=== PATIENT | male | born 1940 | race Caucasian/White ===

== ENCOUNTER 2016-10-08 13:09 | Emergency (ER) | payer OTHER, MEDICARE ==
[~2016-10-08] VITALS: Ht 182.9 cm; Wt 127.0 kg
[~2016-10-08 13:09] MED LIST: BUFFERIN LOW DO81 MG PO; CARVEDILOL12.5 M1 PO; CEPHALEXIN500 M3 PO; CRANBERRY500 M1 PO; DULCOLAX10 MG RC; DUONEB 3 MG/3 ML3 ML INH/SOL; FISH OIL 1,0001 EAC2 PO; FLEET ENEMA 131 UNIT RC; FLOMAX(MONOGRA0.4 MG PO; FOLIC ACID0.4 MG PO; FUROSEMIDE80 M1 PO; GERI-LANTA PO; HUMALOG MI100 UNIT/3 SC; JANUVIA25 MG PO; LANTUS INS100 UNITS/ SC; LEVEMIR 10100 UNITS/ SC; LEVOTHYROXINE150 MCG PO; LIPITOR20 MG PO; LOPRESSOR 12.12.5 MG PO; METOLAZONE5 M1 PO; MILK OF MA400 MG/5 M PO; NITROGLYCERIN1 EACH TOP; NOVOLOG100 U/ML SC; Nitro-Bid TOP; OXYCODONE5 MG PO; PRINIVIL 5MG5 MG PO; SIMVASTATIN80 M1 PO; TYLENOL TAB 32325 MG PO; VALIUM5 M1 PO; VICTOZA6 MG/ML SC; VITAMIN D32000 UNI1 PO; WARFARIN SODIUM5 M1 PO; [UNRECOGNIZED DRUG - OTHER] ID
[2016-10-08 13:16] VITALS: BP 117/68
[2016-10-08 14:43] LABS: PT 19.2 SEC (9.4-12.5)
[2016-10-08 14:45] LABS: ABSOLUTE BASOPHIL COUNT 0 /CUMM (0.0-0.2); ABSOLUTE EOSINOPHIL COUNT 0.5 /CUMM (0.0-0.7); ABSOLUTE GRANULOCYTE CT 7.7 /CUMM (1.4-6.5); ABSOLUTE LYMPH COUNT 1.9 /CUMM (1.2-3.4); ABSOLUTE MONOCYTE COUNT 1.1 /CUMM (0.10-0.60); BASOPHIL % 0.4 % (0.0-2.0); EOSINOPHIL % 4.3 % (0-5); GRANULOCYTE % 68.6 % (42.2-75.2); HEMATOCRIT 36.4 % (42-52); MEAN CORPUSCULAR HGB 28.8 PG (27.0-31.0); MEAN CORPUSCULAR HGB CONC 33.5 G/DL (33.0-37.0); MEAN CORPUSCULAR VOLUME 86.1 FL (80.0-94.0); MEAN PLATELET VOLUME 7.4 FL (7.4-10.4); PLATELET COUNT 193 /CUMM (130-400); RBC DISTRIBUTION WIDTH 15.5 % (11.5-14.5); RED BLOOD CELL CT 4.23 /CUMM (4.70-6.10); WHITE BLOOD CELL COUNT 11.2 /CUMM (4.8-10.8)
== END 2016-10-08 15:11 | disposition admitted as inpatient to this hospital (09) ==
LOC: ERH 13:09
PROVIDERS: Emergency Medicine
DX: R04.0 Epistaxis (principal)
CPT/HCPCS: 99281

== ENCOUNTER 2017-11-23 21:03 | Inpatient (IN) | payer OTHER, MEDICARE ==
[~2017-11-23] VITALS: Ht 182.9 cm; Wt 120.7 kg
[~2017-11-23 21:03] MED LIST changes: +BASAGLAR K100 UNIT/1 SC; +COLACE100 M1 PO; +COUMADIN2.5 M1 PO; +CRANBERRY500 M3 PO; +FISH OIL EC 1,1 EACH PO; -FLOMAX(MONOGRA0.4 MG PO; +FLOMAX0.4 M1 PO; +FOLIC ACID0.4 M1 PO; +METOPROLOL TART25 M1 PO
[2017-11-23 21:41] LABS: ABSOLUTE BASOPHIL COUNT 0 /CUMM (0.0-0.2); ABSOLUTE EOSINOPHIL COUNT 0.2 /CUMM (0.0-0.7); ABSOLUTE GRANULOCYTE CT 4.7 /CUMM (1.4-6.5); ABSOLUTE LYMPH COUNT 1.1 /CUMM (1.2-3.4); ABSOLUTE MONOCYTE COUNT 0.7 /CUMM (0.10-0.60); BASOPHIL % 0.3 % (0.0-2.0); EOSINOPHIL % 3.3 % (0-5); GRANULOCYTE % 69.9 % (42.2-75.2); HEMATOCRIT 33.8 % (42-52); MEAN CORPUSCULAR HGB 29.4 PG (27.0-31.0); MEAN CORPUSCULAR HGB CONC 33.7 G/DL (33.0-37.0); MEAN CORPUSCULAR VOLUME 87.3 FL (80.0-94.0); MEAN PLATELET VOLUME 8.2 FL (7.4-10.4); PLATELET COUNT 125 /CUMM (130-400); RED BLOOD CELL CT 3.87 /CUMM (4.70-6.10); WHITE BLOOD CELL COUNT 6.7 /CUMM (4.8-10.8)
--- NOTE | 2017-11-23 22:20 | RADIOLOGY REPORT ---
EXAMINATION: 1. Left hip. 2. Left femur. CLINICAL INFORMATION: Atraumatic leg pain COMPARISON: None TECHNIQUE: 1. Left hip. 2 views 2. Left femur. 2 views FINDINGS: 1. Left hip. There is no fracture. No dislocation. The joint space is normal. No significant arthropathy. No paraspinal soft tissue abnormality. There are vascular wall calcifications in thigh. 2. Left femur. No fracture. No focal bone lesion or abnormal periosteal reaction. IMPRESSION: 1. Left hip. Normal. 2. Left femur. Normal.
--- NOTE | 2017-11-23 22:23 | RADIOLOGY REPORT ---
EXAMINATION: XR PORTABLE CHEST CLINICAL INFORMATION: Weakness. COMPARISON: Chest x-ray 05/23/2015 TECHNIQUE: Portable frontal view of the chest was obtained. 9:35 PM FINDINGS: There is linear atelectasis/scarring at the left lung base. The lungs are otherwise clear. There is no infiltrate. There is no pulmonary vascular congestion or pleural effusion. The cardiac and mediastinal contours are unchanged. There are calcifications of aortic arch. There is multilevel degenerative spondylosis of the dorsal spine. IMPRESSION: No acute abnormality of the chest.
--- NOTE | 2017-11-23 22:23 | ED AMS/SEIZURE/WEAK/DIZZY ---
History of Present Illness General Chief Complaint: General Adult Stated Complaint: BIBA GENERALIZED WEAKNESS X 2 DAYS Source: patient, family, old records, EMS Exam Limitations: no limitations Vital Signs & Intake/Output Vital Signs & Intake/Output Vital Signs Date Time Temp Pulse Resp B/P B/P Pulse O2 O2 Flow FiO2 Mean Ox Delivery Rate 11/23 2331 65 18 114/65 97 Room Air 11/239 Room Air 11/23 2108 98.8 70 18 111/56 94 Room Air Allergies Coded Allergies: NO KNOWN ALLERGIES (11/27/14) Reconcile Medications Cholecalciferol (Vitamin D3) (Vitamin D3) 2,000 UNIT TABLET 1 TAB PO DAILY SUPPLEMENT (Reported) Cranberry Extract (Cranberry) 500 MG TABLET 1 TAB PO DAILY SUPPLEMENT ( Reported) Docusate Sodium (Colace) 100 MG CAPSULE 1 CAP PO DAILY SUPPLEMENT (Reported) Folic Acid 0.4 MG TABLET 1 TAB PO DAILY SUPPLEMENT (Reported) Furosemide 80 MG TABLET 2 TAB PO BID DIURETIC (Reported) Insulin Glargine,Hum.rec.anlog (Basaglar Kwikpen U-100) 100 UNIT/ML (3 ML) INSULN.PEN 55 UNITS SC QPM DM (Reported) Insulin NPL/Insulin Lispro (Humalog Mix 75-25 Kwikpen) 100 UNIT/ML (75-25) INSULN.PEN DIABETES (Reported) Levothyroxine Sodium 150 MCG TABLET 1 TAB PO DAILY AC THYROID (Reported) Metoprolol Tartrate 25 MG TABLET 0.5 TAB PO BID HEART/BP (Reported) [place]-3/Dha/Epa/Fish Oil (Fish Oil EC 1,000 MG Softgel) (Unknown Strength) CAPSULE.DR (Unknown Dose) PO DAILY SUPPLEMENT (Reported) Simvastatin (Simvastatin*) 80 MG TABLET 1 TAB PO DAILY CHOLESTEROL (Reported) Tamsulosin HCl (Flomax) 0.4 MG CAP.ER.24H 1 CAP PO DAILY (Reported) Warfarin Sodium 5 MG TABLET 1 TAB PO QSUN BLOOD THINNER (Reported) Warfarin Sodium (Coumadin) 2.5 MG TABLET 1 TAB PO AD BLOOD THINNER (Reported) Core Measure Meds Pre-Hospital coumadin Triage Note: BIBA FROM HOME FOR WORSENING WEAKNESS AND PAIN IN LEFT UPPER LEG PAST FEW DAYS. PT REPORTS HE NORMALLY AMBULATES INDEPENDENTLY WITH A CANE BUT MOBILITY IS WORSENING AND PAST FEW DAYS HE HAS NEEDED HELP TO MOVE AROUND. HAS BEEN SLEEPING IN A RECLINER CHAIR. STATES WHEN HE STANDS HE HAS PAIN IN LEFT UPPER LEG. PT ARRIVED AWAKE, ALERT, ORIENTED. IN NO OVERT DISTRESS. DENIES RECENT FALL INJURY OR ILLNESS. 3-4+ PITTING EDEME IN BOTH LEGS WITH COMPRESSION STOCKINGS IN PLACE Triage Nurses Notes Reviewed? yes Onset: 2 days Duration: day(s):, constant, continues in ED Timing: recent history Injury Environment: home Severity: severe Modifying Factors: Improves With: rest. Worsens With: movement. HPI: 2 weeks prior to admission patient reports falling onto his buttocks and back without known injury his ambulation was not limited. 2 days prior to admission patient complains of increasing left hip and leg pain. He also developed increasing swelling to bilateral lower extremities with inability to ambulate. He denies fever chills nausea vomiting diarrhea abdominal pain chest pain shortness breath headache dysuria bleeding. Past History Travel History Traveled to [place] past 21 day No Medical History Any Pertinent Medical History? see below for history Neurological: NONE EENT: NONE Cardiovascular: AFIB, hypertension, hyperlipidemia Respiratory: COPD, obstructive sleep apnea Gastrointestinal: GERD Hepatic: NONE Renal: hematuria, nephrectomy, RCC Musculoskeletal: NONE Psychiatric: NONE Endocrine: diabetes, hypothyroidism Blood Disorders: NONE Cancer(s): renal cancer Surgical History Surgical History: NEPHRECTOMY Psychosocial History Who do you live with Spouse What is your primary language Slovenian Tobacco Use: Never used ETOH Use: occasional use Illicit Drug Use: denies illicit drug use Family History Family History, If Any: Relation not specified for: FH: diabetes mellitus Hx Contributory? No Review of Systems Review of Systems Constitutional: Reports: see HPI, weakness. EENTM: Reports: no symptoms. Respiratory: Reports: no symptoms. Cardiovascular: Reports: see HPI, edema. GI: Reports: no symptoms. Genitourinary: Reports: no symptoms. Musculoskeletal: Reports: see HPI, joint pain. Skin: Reports: no symptoms. Neurological/Psychological: Reports: no symptoms. Hematologic/Endocrine: Reports: no symptoms. Immunologic/Allergic: Reports: no symptoms. All Other Systems: Reviewed and Negative Physical Exam Physical Exam General Appearance: well developed/nourished, alert, awake, comfortable, moderate distress, obese Head: atraumatic, normal appearance Eyes: Bilateral: normal appearance, PERRL, EOMI. Ears, Nose, Throat: normal pharynx, normal ENT inspection, hearing grossly normal Neck: normal inspection, supple, full range of motion, no midline tenderness Respiratory: normal breath sounds, chest non-tender, no respiratory distress, quiet respiration, lungs clear Cardiovascular: regular rate/rhythm, normal peripheral pulses, norml femoral pulses equa Peripheral Pulses: 4+ carotid (R), 4+ carotid (L) Gastrointestinal: normal bowel sounds, soft, non-tender, no organomegaly Back: normal inspection, normal range of motion Extremities: normal range of motion, pedal edema Neurologic/Psych: no motor/sensory deficits, awake, alert, oriented x 3, normal mood/affect, radiology services manager II-XII nml as tested Reflexes: 2+: bicep (R), bicep (L). Skin: intact Lymphatic: no anterior cervical cam Core Measures ACS in differential dx? No CVA/TIA Diagnosis No Sepsis Present: No Sepsis Focused Exam Completed? No Progress Differential Diagnosis: dehydration, electrolyte imbalance, hypoxia, pneumonia Plan of Care: Orders Procedure Date/time Status Renal Dialysis Diet 11/24 B Active Weight 11/23 2349 Active Vital Signs 11/23 2349 Active Teach/Educate 11/23 2349 Active Pain Treatment and Response 11/23 2349 Active Nutritional Intake, Monitor 11/23 2349 Active Isolation 11/23 2349 Active Intake & Output 11/23 2349 Active Patient Care Conference 11/23 2349 Active Activity/Ambulation 11/23 235 Active Patient Data 11/23 2234 Active Intake & Output 11/23 2234 Active CULTURE,BODY FLUID 11/23 2232 Active OXYGEN SETUP (GEN) 11/24 2223 Active Saline Lock 11/24 2223 Active Admit to inpatient 11/24 2223 Active Vital Signs 11/24 2223 Active Activity/Ambulation 11/24 2223 Complete Code Status 11/24 2223 Active EKG 11/23 2136 Active TROPONIN LEVEL 11/23 2124 Complete MAGNESIUM 11/23 2124 Complete COMPREHENSIVE METABOLIC PANEL 11/23 2124 Complete CBC WITHOUT DIFFERENTIAL 11/23 2124 Complete B-TYPE NATRIURETIC PEP (BNP) 11/23 2124 Complete Current Medications Sig/[place] Start time Last Medication Dose Stop Time Status Admin Furosemide 160 MG ONCE ONE 11/23 2329 UNVr (Lasix) 11/23 2330 Laboratory Tests 11/23/172126: Anion Gap 10, Estimated GFR 21 L, BUN/Creatinine Ratio 7.6, Glucose 226 H, Calcium 8.8, Magnesium 1.6, Total Bilirubin 0.5, AST 49, ALT 40, Alkaline Phosphatase 101, Troponin I 0.04, [id number] Pept 1840 H, Total Protein 5.8 L, Albumin 2.8 L, Globulin 3.0, Albumin/Globulin Ratio 0.9 L, CBC w Diff NO MAN DIFF REQ, RBC 3.87 L, MCV 87.3, MCH 29.4, MCHC 33.7, RDW 14.0, MPV 8.2, Gran % 69.9, Lymphocytes % 16.6 L, Monocytes % 9.9 H, Eosinophils % 3.3, Basophils % 0.3, Absolute Granulocytes 4.7, Absolute Lymphocytes 1.1 L, Absolute Monocytes 0.7 H, Absolute Eosinophils 0.2, Absolute Basophils 0 Microbiology 11/23 2238 BODY FLUID: Body Fluid Culture - RECD 11/23 2238 BODY FLUID: Gram Stain - RECD Diagnostic Imaging: Viewed by Me: Radiology Read. Discussed w/RAD: Radiology Read. Radiology Impression: 1. Left hip. Normal. 2. Left femur. Normal. CXR Impression: No acute abnormality of the chest Initial ED EKG: normal axis, normal intervals, normal p-waves, normal QRS complex, normal sinus rhythm, no ST T wave changes Prior EKG: unchanged Rhythm Strip: normal sinus rhythm Departure Departure Disposition: STILL A PATIENT Condition: Stable Clinical Impression Primary Impression: Volume overload Secondary Impressions: ESRD on peritoneal dialysis, Hip pain, left, Multifactorial gait disorder Referrals: Gary Ytaes MD (PCP/Family) Departure Forms: Customer Survey General Discharge Information Admission Note Spoke With: Angie Teran MD Documentation of Exam: Documentation of any treatments & extenuating circumstances including Concerns Regarding Discharge (functional status, medication knowledge or non-compliance, living conditions, etc.) that warrant an admission rather than observation: IV diuresis serial lab exam medication adjustment renal evaluation physical therapy continuing care discharge planning
--- NOTE | 2017-11-23 23:31 | History & Physical ---
Brent Espinoza 11/23/17 2650: General Information and HPI MD Statement: I have seen and personally examined BRIAN FRY and documented this H&P. The patient is a 76 year old M who presented with a patient stated chief complaint of [weakness, inability to ambulate ]. Source of Information: patient History of Present Illness: Mr Fry is a 76M with a PMH of HTN, HLD, IDDM, CAD, HAWK, L RCC s/p Nephrectomy, ESRD on peritoneal dialysis, VA s/p 2x stents who presents with a 2 day history of bilateral lower extremity weakness, b/l thigh pain and inability to ambulate/rise out of chairs. States that he also had some increased lower extremity swelling associated with this weakness. States that he had fallen two weeks ago onto his buttocks, witnessed fall, unable to attribute what caused the fall; did not have any trouble until 2 days ago when he felt unable to walk around in his house 2/2 pain and weakness. Normally ambulates with a cane, uses a stairchair to go from floor to floor. States that today, he needed assistance to rise out of his recliner that he sleeps in as he does not like to be laid flat, and was unable to walk 2/2 weakness, called EMS and was BIBA to Rd. States that he has had an increasingly difficult time transferring from chair to standing or standing to chair for the past two weeks. Denies any fevers, sick contacts, LOC. Denies any Confusion/Chest pain/Dyspnea/Abdominal Pain/Dysuria. Is on peritoneal dialysis which is daily, states that the fluid has been clear, denies turgidity. Had his change his peritoneal fluid in the ED which was sent for culture. 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, follows Dr Masters as Technology Education Instructor ROS Positive for: Weakness, Proximal b/l thigh pain, recent fall 2 weeks ago Negative for: Fevers, sick contacts, confusion, chest pain, palpitations, abdominal pain, nausea/vomiting, dysuria Allergies/Medications Allergies: Coded Allergies: NO KNOWN ALLERGIES (11/27/14) Home Med list Cholecalciferol (Vitamin D3) (Vitamin D3) 2,000 UNIT TABLET 1 TAB PO DAILY SUPPLEMENT (Reported) Cranberry Extract (Cranberry) 500 MG TABLET 1 TAB PO DAILY SUPPLEMENT ( Reported) Docusate Sodium (Colace) 100 MG CAPSULE 1 CAP PO DAILY SUPPLEMENT (Reported) Folic Acid 0.4 MG TABLET 1 TAB PO DAILY SUPPLEMENT (Reported) Furosemide 80 MG TABLET 2 TAB PO BID DIURETIC (Reported) Insulin Glargine,Hum.rec.anlog (Basaglar Kwikpen U-100) 100 UNIT/ML (3 ML) INSULN.PEN 55 UNITS SC QPM DM (Reported) Insulin NPL/Insulin Lispro (Humalog Mix 75-25 Kwikpen) 100 UNIT/ML (75-25) INSULN.PEN DIABETES (Reported) Levothyroxine Sodium 150 MCG TABLET 1 TAB PO DAILY AC THYROID (Reported) Metoprolol Tartrate 25 MG TABLET 0.5 TAB PO BID HEART/BP (Reported) [place]-3/Dha/Epa/Fish Oil (Fish Oil EC 1,000 MG Softgel) (Unknown Strength) CAPSULE.DR (Unknown Dose) PO DAILY SUPPLEMENT (Reported) Simvastatin (Simvastatin*) 80 MG TABLET 1 TAB PO DAILY CHOLESTEROL (Reported) Tamsulosin HCl (Flomax) 0.4 MG CAP.ER.24H 1 CAP PO DAILY (Reported) Warfarin Sodium 5 MG TABLET 1 TAB PO QSUN BLOOD THINNER (Reported) Warfarin Sodium (Coumadin) 2.5 MG TABLET 1 TAB PO AD BLOOD THINNER (Reported) Past History Travel History Traveled to [place] past 21 day No Medical History Neurological: NONE EENT: NONE Cardiovascular: AFIB, hypertension, hyperlipidemia Respiratory: COPD, obstructive sleep apnea Gastrointestinal: GERD Hepatic: NONE Renal: hematuria, nephrectomy, RCC Musculoskeletal: NONE Psychiatric: NONE Endocrine: diabetes, hypothyroidism Blood Disorders: NONE Cancer(s): renal cancer Surgical History Surgical History: NEPHRECTOMY Past Family/Social History Family History Relations & Conditions if any Relation not specified for: FH: diabetes mellitus Psychosocial History Who Do You Live With? spouse Primary Language: Khmer ETOH Use: occasional use Illicit Drug Use: denies illicit drug use Functional Ability ADLs Independent: dressing, eating, toileting, bathing. Ambulation: independent Review of Systems Review of Systems Constitutional: Reports: see HPI. Exam & Diagnostic Data Last 24 Hrs of Vital Signs/I&O Vital Signs Date Time Temp Pulse Resp B/P B/P Pulse O2 O2 Flow FiO2 Mean Ox Delivery Rate 11/24 0042 Room Air 11/24 0034 97.7 65 20 140/70 96 Room Air 11/23 2331 65 18 114/65 97 Room Air 11/23 2139 Room Air 11/23 2109 98.8 70 18 111/56 94 Room Air Intake & Output 11/24 0800 11/24 0000 11/23 1600 Intake Total Output Total Balance Patient 290 lb 280 lb Weight Weight Bed scale Reported by Patient Measurement Method Physical Exam General Appearance Alert, Oriented X3, Cooperative, No Acute Distress Skin healing laceration on dorsum of L forearm s/p fall 2 weeks ago, chronic venous stasis changes b/l lower extremities Skin Temp/Moisture Exam: Warm/Dry Cardiovascular Regular Rate, Normal S1, Normal S2 Lungs Clear to Auscultation, Normal Air Movement Abdomen obese; soft; peritoneal catheter in place nontender; no fluid wave noted Neurological Normal Speech, Sensation Intact, 4/5 b/l lower extremity to flexion , extension Extremities Normal Pulses, significant edema b/l lower extremities up to mid gomes Vascular Pulses Symmetrical Last 24 Hrs of Labs/Maikol: Laboratory Tests 11/23/172126: Anion Gap 10, Estimated GFR 21 L, BUN/Creatinine Ratio 7.6, Glucose 226 H, Hemoglobin A1c Pending, Calcium 8.8, Phosphorus 2.1 L, Magnesium 1.6, Total Bilirubin 0.5, AST 49, ALT 40, Alkaline Phosphatase 101, Creatine Kinase 44 L, Troponin I 0.04, Pnv-G-Xsotuqudoue Pept 1840 H, Total Protein 5.8 L, Albumin 2.8 L, Globulin 3.0, Albumin/Globulin Ratio 0.9 L, TSH 1.330, CBC w Diff NO MAN DIFF REQ, RBC 3.87 L, MCV 87.3, MCH 29.4, MCHC 33.7, RDW 14.0, MPV 8.2, Gran % 69.9, Lymphocytes % 16.6 L, Monocytes % 9.9 H, Eosinophils % 3.3, Basophils % 0.3, Absolute Granulocytes 4.7, Absolute Lymphocytes 1.1 L, Absolute Monocytes 0.7 H, Absolute Eosinophils 0.2, Absolute Basophils 0 Microbiology 08/01 2239 BODY FLUID: Body Fluid Culture - RECD 11/23 2238 BODY FLUID: Gram Stain - RECD Assessment/Plan Assessment: Ms. Fry is a 76yo M w/ PMH of ESRD on peritoneal dialysis (25L in/out), nephrectomy 2/2 RCC, COPD/HAWK, Hx of VA s/p PCI w/ 2 stents remotely, A-fib rate controlled off Coumadin per pt's decision, HTN, HLD, GERD, IDDM (HbA1c 7.7 2015) , Hypothyroidism, BIBA from home for worsening weakness and pain in bilateral upper thigh x 2 days. He is admitted for bilateral lower extremity weakness, unsafe ambulation. #Weakness of unknown etiology deconditioning, potentially worsening ejection fraction with symptoms only now showing recently. No physical exam findings suggesting pulmonary edema, but does have significant lower extremity edema. No orthopnea or crackles or shortness of breath. Will get repeat echo. #ESRD on peritoneal dialysis daily #Chronic medical conditions DVT prophylaxis IV access DNR/DNI CC2 diet Disposition pending PT eval As Ranked By This Provider Problem List: 1. Multifactorial gait disorder 2. ESRD on peritoneal dialysis Core Measures/Misc (01/09) Acute Coronary Syndrome ACS Diagnosis: No Congestive Heart Failure Congestive Heart Failure Diagnosis No Last Known EF % 35 Cerebrovascular Accident CVA/TIA Diagnosis: No VTE (View Protocol) VTE Risk Factors Age>40 No Mechanical VTE Prophylaxis d/t N/A MechProphylax Ordered No VTE Pharm Prophylaxis d/t NA PharmProphylax ordered Sepsis (View protocol) Sepsis Present: No If YES complete Sepsis Event Note If YES complete Sepsis Event Note Helena Marin 11/23/17 2352: Core Measures/Misc (01/09) Sepsis (View protocol) If YES complete Sepsis Event Note If YES complete Sepsis Event Note Resident Review Statement Resident Statement: examined this patient, discussed with analysis internship, agreed with analysis internship, discussed with family, reviewed EMR data (avail), discussed with nursing , discussed with case mgmt, reviewed images, amended to note Other Findings: Ms. Fry is a 76yo M w/ PMH of ESRD on peritoneal dialysis (25L in/out), nephrectomy 2/2 RCC, COPD/HAWK, Hx of VA s/p PCI w/ 2 stents remotely, A-fib rate controlled off Coumadin per pt's decision, HTN, HLD, GERD, IDDM (HbA1c 7.7 2016) , Hypothyroidism, BIBA from home for worsening weakness and pain in bilateral upper thigh x 2 days. He was at baseline walking independently with a cane but worsened on ambulation now needing assistent to move around. Patient at baseline was sleeping in a recliner chair not due to orthopnea but due to back pain. Patient was in his usual state of health and his peritoneal dialysis was being managed by his with no acute change on fluid status. He was seeing his kidney specialist Dr. Westfall once a month and the last Cr was 3.2, and no active change on dialysis regimen was given. his urine output has been great with flomax/lasix at home without any urinary symptoms/foul smelling. Otherwise, he also saw Dr. Masters in 2016 with echo identified HFrEF EF 35%, and A-fib on coumadin in the past but he took off the coumadin by himself remotely. He also has chronically BLE 3-4+ pitting swelling without any acute change on swelling in the past week at all. His DM was managed on insulin at home and has no peripheral neuropathy to his knowledge. He endorsed chronic post-nasal drip with intermittent cough, not acutely coughing more recently. -Baselines: ambulated independently w/ cane at home -Work: retired [employer] During our clinical interaction, patient denied recent travel/sick contacts, fever/lightheadedness/diaphoresis/night sweat/weight change/SOB/Chest Pain/ Palpitation/Abdominal pain/bowel movement or urinary abnormality, or other skin/ musculoskeletal/neurological/mood disorders, or dietary/appetite change. -Smoking: Quitted smoking 13yrs ago. -Alcohol: a few beers oer day -Rec Drugs: denied On admission, Vitals: Stable afebrile, HR 70, RR 18, BP 111/56, 94% on room air Physical exam as above, pertinent findings including distended ab w/ cathether intact without discharge/signs of local infection, BS +ve with tenderness on palpation. Bilateral lungs clear without crackles. BLEs 3-4+ pitting edema w/ decreased pulse however not cold/sensation loss/tenderness. Chronic BLEs skin change with flaky/redness but no signs of infection/cellulitis. -CBC: No leukocytosis, H/H 11.4/43.8, thrombocytopenia 125 decreased from 2017, not sure if at baseline, -CMP: Mild hyponatremia 134, hypokalemia 3.4 without symptoms, and with creatinine 2.9 at baseline, glucose 226, proBNP 1840, hypoalbuminemia 2.8, all at baseline, troponin 0.04, with possible history of type II VA? (max 0.13 in history) -UA/Microbiology: No UA sent. Urine culture positive for MRSA back in 2016 -Imagings: Hip/femoral x-ray 1. Left hip. Normal. 2. Left femur. Normal. CXR: No acute -EKG: NSR w/o significant ST-T abnormalities, unchanged from previous. -Last Echo 2016: HFrEF EF 35%, with akinetic inferior/posterior wall, with borderline pulmonary hypertension with right ventricular systolic pressure at upper limit of normal at 30-35 mmHg -Interventions in ER: Lasix 160 mg IV 1 Problem list/Assessment/Hospital Course: #Weakness of unknown etiology, however acute exacerbation/chronic deconditioning on HFrEF could be a possible trigger, pending further evaluation #ESRD on peritoneal dialysis, stable Cr #Hypokalemia/Hypophosphatemia w/ no clear etiology, presumably use of diuretics/ ESRD, may contributed to the weakness #PMH of ESRD on peritoneal dialysis (25L in/out), nephrectomy 2/2 RCC, COPD/HAWK, Hx of VA s/p PCI w/ 2 stents remotely, A-fib rate controlled off Coumadin per pt 's decision, HTN, HLD, GERD, IDDM (HbA1c 7.7 2015), Hypothyroidism, - Admit to General medicine - Vitals per protocol, monitor I&O per protocol. Daily weight. - Novolog SS/AccuChek for DM - PT/OT in the AM per primary team - Continue home meds including Lasix 160mg PO BID. Patient had received 1 dose of IV lasix 160mg. - Patient had unclear etiology of weakness at this point, and the major issue to address is to rule out if patient's HFrEF was worsening acutely or chronically from 2016. Patient had no signs of acute CHF exacerbation with no physical findings of crackles/SOB/Orthopnea/Increased fluid retention, and was compliant with all meds. - Recheck Echo in the AM - would recheck BEP in the AM and replete K/phos per nephro. - Would check UA/Urine culture to r/o UTI, although unlikely as patient had no urinary symptoms/leukocytosis. - Pending Nephro consult in the AM. Patient's peritoneal dialysis regimen had been unchanged and slightly improved on Cr, with hypoK/Hypophos. No urgent intervention is required. - Pending Cardiology by Dr. Masters or whoever covering. - Pending cultures from peritoneal fluid. No signs of infection/SBP at this point. - Pain per pathway DVT prophylaxis Pharm PPX + ALPS Diabetic Diet CC2 IV Access: Peripheral IV DNR/DNI Jeffry LIN,Angie 11/24/17 0342: Core Measures/Misc (01/09) Sepsis (View protocol) If YES complete Sepsis Event Note If YES complete Sepsis Event Note Attending MD Review Statement Attending Statement Attending MD Statement: examined this patient, discuss w/resident/PA/ASSEMBLER BILLIARD TABLE, agreed w/resident/PA/ASSEMBLER BILLIARD TABLE Attending Assessment/Plan: This is a 76-year-old male with a past medical history significant for end-stage renal disease on peritoneal dialysis for the past 2 years along with a history of systolic CHF with an ejection fraction of 35% as of 2016 presenting to the hospital for evaluation of generalized weakness. Of note, he had a recent fall a few days ago. In the emergency department he had imaging done of his hip, femur and a chest x-ray which were negative. Patient has been compliant with his peritoneal dialysis (managed by his ). 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 Follow-up urine cultures and peritoneal fluid cultures although infection seems less likely as patient is afebrile and has no leukocytosis Check TSH vitamin B12 CPK
[2017-11-24 00:34] VITALS: BP 140/70
[2017-11-24 06:31] VITALS: BP 100/58
[2017-11-24 08:18] LABS: PT 12.9 SEC (9.4-12.5)
--- NOTE | 2017-11-24 11:56 | PN- Att Addend ---
Attending Addendum Attending Brief Note 76-year-old male with a past medical history significant for end-stage renal disease on peritoneal dialysis for the past 2 years along with a history of systolic CHF with an ejection fraction of 35% as of 2016 presenting to the hospital for evaluation of generalized weakness. Of note, he had a recent fall a few days ago. In the emergency department he had imaging done of his hip, femur and a chest x-ray which were negative. Patient has been compliant with his peritoneal dialysis (managed by his ). Overnight no new complaints. He is on room air without use of accessory muscles. His PD site looks ok. He uses special boots for ambulation present bedside. C/o generalised weakness. PE with generalsied edema with ascites. Tap obtained from ascites. Chest xray with no pulmonary vascular congestion. Problem list: 1. Generalized weakness with recent fall; differential diagnosis includes physical deconditioning in the setting of end-stage renal disease, hypothyroidism, vitamin B12 deficiency, 2. Rule out infection. s/p paracentesis with no obvious SBP. Plan: Physical therapy evaluation Nephrology consultation for dialysis plan. Follows pepito as outpatient. Lasix use as per nephrology Follow-up urine cultures and peritoneal fluid cultures although infection seems less likely as patient is afebrile and has no leukocytosis F/U TSH vitamin B12 CPK Admission Lab Results I reviewed the following labs: Laboratory Tests 11/24 11/23 11/23 0728 2239 2127 Chemistry Sodium (137 - 145 mmol/L) 134 L Potassium (3.5 - 5.1 mmol/L) 3.4 L Chloride (98 - 107 mmol/L) 100 Carbon Dioxide (22 - 30 mmol/L) 24 Anion Gap (5 - 16) 10 BUN (9 - 20 mg/dL) 22 H Creatinine (0.7 - 1.2 mg/dL) 2.9 H Estimated GFR (>60 ml/min) 21 L BUN/Creatinine Ratio (7 - 25 %) 7.6 Glucose (65 - 99 mg/dL) 226 H Hemoglobin A1c (4.2 - 5.8 %) 7.1 H Calcium (8.4 - 10.2 mg/dL) 8.8 Phosphorus (2.5 - 4.5 mg/dL) 2.1 L Magnesium (1.6 - 2.3 mg/dL) 1.6 Total Bilirubin (0.2 - 1.3 mg/dL) 0.5 AST (17 - 59 U/L) 49 ALT (21 - 72 U/L) 40 Alkaline Phosphatase (< 127 U/L) 101 Creatine Kinase (55 - 170 U/L) 44 L Troponin I (<0.11 ng/ml) 0.04 Yto-X-Grfayzkuihn Pept (<125 pg/mL) 1840 H Total Protein (6.3 - 8.2 g/dL) 5.8 L Albumin (3.5 - 5.0 g/dL) 2.8 L Globulin (1.9 - 4.2 gm/dL) 3.0 Albumin/Globulin Ratio (1.1 - 2.2 %) 0.9 L Vitamin B12 (239 - 931 pg/mL) 303 TSH (0.270 - 4.200 uIU/mL) 1.330 Coagulation PT (9.4 - 12.5 SEC) 12.9 H INR (0.90 - 1.17) 1.18 H Hematology CBC w Diff NO MAN DIFF REQ WBC (4.8 - 10.8 /CUMM) 6.7 RBC (4.70 - 6.10 /CUMM) 3.87 L Hgb (14.0 - 18.0 G/DL) 11.4 L Hct (42 - 52 %) 33.8 L MCV (80.0 - 94.0 FL) 87.3 MCH (27.0 - 31.0 PG) 29.4 MCHC (33.0 - 37.0 G/DL) 33.7 RDW (11.5 - 14.5 %) 14.0 Plt Count (130 - 400 /CUMM) 125 L MPV (7.4 - 10.4 FL) 8.2 Gran % (42.2 - 75.2 %) 69.9 Lymphocytes % (20.5 - 51.1 %) 16.6 L Monocytes % (1.7 - 9.3 %) 9.9 H Eosinophils % (0 - 5 %) 3.3 Basophils % (0.0 - 2.0 %) 0.3 Absolute Granulocytes (1.4 - 6.5 /CUMM) 4.7 Absolute Lymphocytes (1.2 - 3.4 /CUMM) 1.1 L Absolute Monocytes (0.10 - 0.60 /CUMM) 0.7 H Absolute Eosinophils (0.0 - 0.7 /CUMM) 0.2 Absolute Basophils (0.0 - 0.2 /CUMM) 0 Other Body Source Fluid Glucose (mg/dL) 227 Fluid LDH (U/L) 107 Admission Meds I reviewed the following Meds: Current Medications Sig/[place] Start time Last Medication Dose Stop Time Status Admin Atorvastatin Calcium 80 MG 1700 11/24 1700 AC (Lipitor) Cholecalciferol 2,000 IU DAILY 11/24 0900 AC 11/24 (Vitamin D) 0943 Docusate Sodium 100 MG DAILY 11/24 0900 AC 11/24 (Colace) 0944 Folic Acid 1 MG DAILY 11/24 0900 AC 11/24 (Folic Acid) 0943 Furosemide 120 MG BID 11/24 1115 AC 11/24 (Lasix) 1139 Insulin Aspart 0 TIDAC 11/24 08 AC 11/24 (NovoLOG) 1136 Levothyroxine Sodium 0.15 MG DAILY AC 11/24 0700 AC 11/24 (Synthroid) 0541 Metoprolol Tartrate 12.5 MG BID 11/24 09 AC 11/24 (Lopressor) 0944 Tamsulosin HCl 0.4 MG DAILY 11/24 0900 AC 11/24 (Flomax) 09
[2017-11-24 14:37] VITALS: BP 122/72
--- NOTE | 2017-11-24 18:09 | ECHOCARDIOGRAM REPORT ---
BRIAN KELLOGG Age: 76 : 1940 Gender: M Exam Date: 11/24/2017 17:06 Exam Location: [facility] Ht (in): 72 Wt (lb): 290 BSA: 2.64 BP: 122 / 72 Ordering Physician: Helena Marin MD Referring Physician: Mele Masters MD Chief, SoC Technologist: Milagro Edwards [facility] Room Number: 236 Indications: Heart failure Rhythm: Sinus Technical Quality: , Technically difficult study FINDINGS Left Ventricle Left ventricular cavity size at the upper limits of normal. Moderate concentric left ventricular hypertrophy. Inferior hypo-to akinesis. Left ventricular ejection fraction is estimated at 40-45 %. Right Ventricle Right ventricle not well visualized, grossly normal. Right Atrium Right atrium not well visualized, grossly normal. Left Atrium Mild left atrial dilatation. Mitral Valve Mitral valve not well visualized, grossly normal. No mitral regurgitation. Aortic Valve Focal thickening of the aortic valve cusps. No aortic stenosis. No aortic regurgitation. Tricuspid Valve Tricuspid valve is normal in structure and function. Trace tricuspid regurgitation. Right ventricular systolic pressure estimated to be within the normal range at 30-35 mmHg. Pulmonic Valve Pulmonic valve not well visualized, grossly normal. Pericardium No pericardial or pleural effusion. Great Vessels Normal size aortic root. Aortic arch and great vessels not visualized. CONCLUSIONS Left ventricular cavity size at the upper limits of normal. Moderate concentric left ventricular hypertrophy. Inferior hypo-to akinesis. Left ventricular ejection fraction is estimated at 40-45 %. Mild left atrial dilatation. Mitral valve not well visualized, grossly normal. Focal thickening of the aortic valve cusps. No aortic stenosis. Right ventricular systolic pressure estimated to be within the normal range at 30-35 mmHg. Aortic arch and great vessels not visualized. Mele Masters M.D. (Electronically Signed) Final Date: 24 November 2017 18:08 MEASUREMENTS (Male / Female) Normal Values 2D ECHO LV Diastolic Diameter PLAX 5.5 cm 4.2 - 5.9 / 3.9 - 5.3 cm LV Systolic Diameter PLAX 4.4 cm 2.1 - 4.0 cm LV Fractional Shortening PLAX 20.0 % 25 - 46 % LV Ejection Fraction 2D Teich 40.5 % IVS Diastolic Thickness 1.5 cm LVPW Diastolic Thickness 1.5 cm LV Relative Wall Thickness 0.5 RV Internal Dim ED PLAX 3.4 cm 1.9 - 3.8 cm LVOT Diameter 2.0 cm Aortic Root Diameter 3.2 cm LA Systolic Diameter LX 5.0 cm 3.0 - 4.0 / 2.7 - 3.8 cm LA Volume 48.0 cm 18 - 58 / 22 - 52 cm Ascending Aorta Diameter 3.4 cm DOPPLER AV Peak Velocity 105.0 cm/s AV Peak Gradient 4.4 mmHg AV Mean Velocity 78.8 cm/s AV Mean Gradient 3.0 mmHg AV Velocity Time Integral 26.5 cm LVOT Peak Velocity 84.2 cm/s LVOT Peak Gradient 2.8 mmHg LVOT Mean Velocity 61.4 cm/s LVOT Mean Gradient 2.0 mmHg LVOT Velocity Time Integral 18.5 cm LVOT Stroke Volume 58.1 cm AV Area Cont Eq vti 2.2 cm AV Area Cont Eq pk 2.5 cm MV Peak Velocity 99.2 cm/s MV Peak Gradient 3.9 mmHg MV Mean Velocity 54.1 cm/s MV Mean Gradient 1.0 mmHg Mitral E Point Velocity 80.0 cm/s MV PHT Velocity 102.0 cm/s MV Deceleration Cook 364.0 cm/s MV Pressure Half Time 84.1 ms MV Area PHT 2.6 cm MV Deceleration Time 225.0 ms TR Peak Velocity 229.0 cm/s TR Peak Gradient 21.0 mmHg Right Atrial Pressure 10.0 mmHg Pulmonary Artery Systolic Pressure 31.0 mmHg Right Ventricular Systolic Pressure 31.0 mmHg PV Peak Velocity 91.0 cm/s PV Peak Gradient 3.3 mmHg PV Mean Velocity 68.1 cm/s PV Mean Gradient 2.0 mmHg PV Velocity Time Integral 23.2 cm LV E' Lateral Velocity 14.2 cm/s Mitral E to LV E' Lateral Ratio 5.6 LV E' Septal Velocity 4.8 cm/s Mitral E to LV E' Septal Ratio 16.7
--- NOTE | 2017-11-24 21:03 | PN- Housestaff ---
Subjective Follow-up For: CKD, fluid retention secondary to CKD. Complaints: Weakness in legs, body swelling. Subjective: Patient seen and examined on bed. He is in no acute distress. Patient was complaining weakness in his lower limbs. Is also complaining body swelling, shortness of breath. He denies fever, chills, palpitation, chest pain, loose motion, burning micturition, headache, weight loss. Review of Systems Constitutional: Reports: see HPI. Objective Last 24 Hrs of Vital Signs/I&O Vital Signs Date Time Temp Pulse Resp B/P B/P Pulse O2 O2 Flow FiO2 Mean Ox Delivery Rate 11/24 2012 98.7 63 122/72 08/ 1437 98.7 63 20 122/72 95 Room Air 11/24 0944 74 130/68 / 0944 74 130/68 / 0800 Room Air 11/24 0631 98.0 89 20 100/58 96 Room Air 11/24 0042 Room Air 11/24 0034 97.7 65 20 140/70 96 Room Air 11/23 2331 65 18 114/65 97 Room Air 11/23 2139 Room Air 11/23 2109 98.8 70 18 111/56 94 Room Air Intake & Output 11/24 1600 08/02 0800 08/ 0000 Intake Total 360 Output Total 1200 1000 Balance -840 -1000 Intake, Oral 360 Number 1 0 Bowel Movements Output, Urine 1200 1000 Patient 290 lb 280 lb Weight Weight Bed scale Reported by Patient Measurement Method Physical Exam General Appearance: Alert, Oriented X3, Cooperative, Mild Distress Cardiovascular: Normal S1, Normal S2 Lungs: Clear to Auscultation, Normal Air Movement Abdomen: Distended, Fluid thrill positive, no hepatospleenomegaly, dialysis sites is ok. Extremities: Grade4 edema in bilateral lower extremeties. Assessment/Plan Assessment: 76-year-old male past medical history of end-stage renal disease, nephrectomy secondary to RCC, on peritoneal dialysis, last dialysis was yesterday night he had been CKD since 2 years he is compliant with home peritoneal dialysis presented to emergency department with bilateral leg weakness, unsafe ambulation. Problem list; -End-stage renal disease -Peritoneal dialysis -Fluid retention secondary to kidney disease -Aggravated pedal edema -Hypokalemia hypophosphatemia Plan: Case discussed with clay stain mixer, he advised Lasix 120 mg twice daily, 2.5% dianeal solution for peritoneal dialysis. -Strict observation for vitals -Follow-up TSH, B12, CPK tomorrow -Follow abdominal fluid for culture, for white blood cell count, fever. -Follow-up for dialysis associated peritonitis. If white blood cell count in abdominal fluid was more than 100 cells then we have to treat as dialysis associated peritonitis. -Compression stocking -DVT prophylaxis -DNI/DNR -GI prophylaxis -Avoid nephrotoxic medication. -Follow-up echo report. Problem List: 1. Fluid overload 2. Renal failure 3. Hip pain, left Pain Ratin Pain Location: left hip joint Pain Goal: Remain pain free Pain Plan: Painkillers not nephrotoxic Tomorrow's Labs & Rationales: urinalysis, RFTs, CBC
[2017-11-24 21:30] VITALS: BP 132/78
--- NOTE | 2017-11-24 22:00 | Cons- Nephrology ---
General Information and HPI Consulting Request Date of Consult: 11/24/17 Requested By: Tati Medina MD Reason for Consult: ESRD on PD Source of Information: patient, old records, primary equity research associate Exam Limitations: no limitations History of Present Illness: The patient is a 76-year-old man with known CKD secondary to hypertension and diabetes mellitus, status post left nephrectomy for a renal cell carcinoma, on CAPD at home (only 2 exchanges per day) apparently with significant residual renal function for which she is on high dose daily furosemide. He now comes in because of weakness and difficulty ambulating which he attributes to worsening lower extremity edema over the past several days. There has been no recent change in his medication regimen and he states that he continues to void reasonably large amounts of urine daily. There is been no symptoms referable to the urinary tract. Peritoneal dialysis has been proceeding normally at home with no change in the appearance of the fluid and no abdominal pain. His equity research associate is Dr. Mon in [place]. Past medical history is positive for hypertension, diabetes mellitus, hyperlipidemia, coronary artery disease, obstructive sleep apnea, left nephrectomy for an RCC, and ESRD on PD as noted. 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 He denies any drug abuse. Allergies/Medications Allergies: Coded Allergies: NO KNOWN ALLERGIES (11/27/14) Home Med List: Cholecalciferol (Vitamin D3) (Vitamin D3) 2,000 UNIT TABLET 1 TAB PO DAILY SUPPLEMENT (Reported) Cranberry Extract (Cranberry) 500 MG TABLET 1 TAB PO DAILY SUPPLEMENT ( Reported) Docusate Sodium (Colace) 100 MG CAPSULE 1 CAP PO DAILY SUPPLEMENT (Reported) Folic Acid 0.4 MG TABLET 1 TAB PO DAILY SUPPLEMENT (Reported) Furosemide 80 MG TABLET 2 TAB PO BID DIURETIC (Reported) Insulin Glargine,Hum.rec.anlog (Basaglar Kwikpen U-100) 100 UNIT/ML (3 ML) INSULN.PEN 55 UNITS SC QPM DM (Reported) Insulin NPL/Insulin Lispro (Humalog Mix 75-25 Kwikpen) 100 UNIT/ML (75-25) INSULN.PEN DIABETES (Reported) Levothyroxine Sodium 150 MCG TABLET 1 TAB PO DAILY AC THYROID (Reported) Metoprolol Tartrate 25 MG TABLET 0.5 TAB PO BID HEART/BP (Reported) [place]-3/Dha/Epa/Fish Oil (Fish Oil EC 1,000 MG Softgel) (Unknown Strength) CAPSULE.DR (Unknown Dose) PO DAILY SUPPLEMENT (Reported) Simvastatin (Simvastatin*) 80 MG TABLET 1 TAB PO DAILY CHOLESTEROL (Reported) Tamsulosin HCl (Flomax) 0.4 MG CAP.ER.24H 1 CAP PO DAILY (Reported) Warfarin Sodium 5 MG TABLET 1 TAB PO QSUN BLOOD THINNER (Reported) Warfarin Sodium (Coumadin) 2.5 MG TABLET 1 TAB PO AD BLOOD THINNER (Reported) Review of Systems Review of Systems: Gen.: Appetite good, no fever or chills Skin: No rash or jaundice HEENT: No visual or hearing disturbances, no discharge Cardiopulmonary: No shortness of breath, cough, chest pain, orthopnea GI: No nausea, vomiting, abdominal pain, diarrhea : No dysuria, hematuria or other symptoms referable to the urinary tract Musculoskeletal: Weakness as noted (see HPI, no arthralgias, arthritis, myalgias Neuro: No altered mental status, speech impairment, focal weakness, paresthesias Past History Travel History Traveled to [place] past 21 day No Medical History Neurological: NONE EENT: NONE Cardiovascular: AFIB, hypertension, hyperlipidemia Respiratory: COPD, obstructive sleep apnea Gastrointestinal: GERD Hepatic: NONE Renal: hematuria, nephrectomy, RCC Musculoskeletal: NONE Psychiatric: NONE Endocrine: diabetes, hypothyroidism Blood Disorders: NONE Cancer(s): renal cancer Surgical History Surgical History: NEPHRECTOMY Family History Relations & Conditions If Any: Relation not specified for: FH: diabetes mellitus Psychosocial History Who Do You Live With? spouse Primary Language: [place] Smoking Status: Former Smoker ETOH Use: occasional use Illicit Drug Use: denies illicit drug use Functional Ability ADLs Independent: dressing, eating, toileting, bathing. Ambulation: independent Exam & Diagnostic Data Vital Signs and I&O Vital Signs Date Time Temp Pulse Resp B/P B/P Pulse O2 O2 Flow FiO2 Mean Ox Delivery Rate 11/24 2012 98.7 63 122/72 11/24 1437 98.7 63 20 122/72 95 Room Air 11/24 0944 74 130/68 11/24 0944 74 130/68 11/24 0800 Room Air 11/24 0631 98.0 89 20 100/58 96 Room Air 11/24 0042 Room Air 11/24 0034 97.7 65 20 140/70 96 Room Air 11/23 2331 65 18 114/65 97 Room Air Intake & Output 11/24 1600 11/24 0400 11/23 1600 11/23 0400 11/22 1600 11/22 0400 Intake Total 360 Output Total 2200 Balance -1840 Intake, Oral 360 Number 1 Bowel Movements Output, Urine 2200 Patient 290 lb 290 lb Weight Weight Bed scale Bed scale Measurement Method Physical Exam: General: WD, obese lwhite male in NAD Skin: Without rash or jaundice HEENT: Conjunctivae pink, sclerae anicteric, mucous membranes moist Neck: Without masses or thyromegaly, no supraclavicular or cervical adenopathy Chest: Clear with decreased BS at bases Heart: Regular rate and rhythm without S3 or rub Abdomen: Obese, soft and nontender without palpable masses or organomegaly; PD cath site clean and dry Extremities: 3+ LE edema to above the knees bilaterally Neuro: Awake and alert without focal findings; no asterixis or myoclonus Assessment/Plan Assessment/Recommendations Assessment: 76 yo man with ESRD 2/2 DM and HTN on CAPD using only 2 exchanges/day but with apparent significant residual renal function, now admitted with volume overload to the point of significantly interfering with his ability to ambulate. Echo --> moderately depressed LVEF (40-45%) with LVH, inferior wall hypokinesis and nl RV pressures. Our goal at this time should be to ultrafilter &/or diurese him. Recommendations: !. PD orders: 2.5% Dianeal, low calcium, q6hr exchanges 2. Lasix 120mg IV q12h 3. Monitor I&O, VS, labs closely Thank you. Will follow.
[2017-11-25 07:12] VITALS: BP 130/80
--- NOTE | 2017-11-25 07:18 | PN- Housestaff ---
Jose Teran 11/25/17 0710: Subjective Follow-up For: Fluid overload, ESRD on peritoneal dialysis Subjective: Patient is seen and examined on bed. He is doing well overnight. He ambulates well compared to yesterday. He walked around with support. His dialysis continue since last night 11 PM. He he passed 900 mL of urine since last night. He denies any shortness of breath, chest pain, palpitation, abdominal pain, loose motion, burning micturition, fever, chills, abdominal pain. Review of Systems Constitutional: Reports: see HPI. Objective Last 24 Hrs of Vital Signs/I&O Vital Signs Date Time Temp Pulse Resp B/P B/P Pulse O2 O2 Flow FiO2 Mean Ox Delivery Rate 11/25 07 97.8 65 18 130/80 96 11/24 2130 98.2 69 20 132/78 98 11/24 2012 98.7 63 122/72 11/24 1437 98.7 63 20 122/72 95 Room Air 11/24 0944 74 130/68 11/24 0944 74 130/68 11/24 0800 Room Air Intake & Output 11/25 0800 11/25 0000 11/24 1600 Intake Total 200 360 Output Total 9536 807 2155 Balance -1000 100 -840 Intake, Oral 200 360 Number 1 Bowel Movements Output, 200 100 Dialysate Output, Urine 800 1200 Physical Exam General Appearance: Alert, Oriented X3, Cooperative Assessment/Plan Assessment: 76-year-old male past medical history of hypertension, hyperlipidemia diabetes mellitus end-stage renal disease secondary to diabetes mellitus and hypertension , he is on peritoneal dialysis, hypothyroidism, COPD, HAWK, GERD, coronary artery disease, left ventricular hypertrophy ejection fraction 40-45 ,presented to emergency department with a complaint of weakness, difficulty ambulation. Problem list: Fluid overload secondary to ESRD Peritoneal dialysis Coronary artery disease ejection fraction 40-45 Bilateral lower leg weakness Difficulty ambulation phosphate level is low. -Bilaterally lower limb redness Plan: Patient is on peritoneal dialysis since two years, his last dialysis 2.5% dianeal solution since last night at 11 PM, he is doing good compared to yesterday. He is on Lasix 120 mg twice daily His edema improving compared to yesterday, ambulated well compared to yesterday. There is no sign of infection on his abdomen. -Echo is done showing ejection fraction 40-45, left ventricular hypokinesia, left ventricular concentric hypertrophy secondary due to hypertension. -His magnesium and calcium is in lower normal range -phosphate level is low. -Monitor input output -Ambulate in his comfort level -Pressure stocking -DVT prophylaxis -Dopplar USG of his lowe limb to rule out DVT. -Avoid nephrotoxic medication -He does 10 pound weight compared to yesterday -His output is 1000 last night. -His abdominal fluid Gram staining is negative, very rare WBC. -Follow-up under preparation plant repairer. -Followed being bilateral lower limb redness or suspecting cellulitis, borders are marked. Will keep eyes on it. -Diabetic CC2 diet. Problem List: 1. Fluid overload 2. ESRD on peritoneal dialysis Pain Ratin Pain Location: no pain Pain Goal: Remain pain free Pain Plan: no pain Tomorrow's Labs & Rationales: Jamal Tati Medina 11/25/17 1145: Attending MD Review Statement Attending Statement Attending MD Statement: examined this patient, discuss w/resident/PA/SENIOR ELECTRONICS TECHNICIAN, agreed w/resident/PA/SENIOR ELECTRONICS TECHNICIAN, discussed with family, reviewed EMR data (avail), discussed with nursing, discussed with case mgmt, reviewed images, amended to note Attending Assessment/Plan: Overnight no new complaints. He is on room air without use of accessory muscles. His PD site looks ok. He uses special boots for ambulation present bedside. His edema seems to be improved and he feels better. Problem list: 1. Generalized weakness with recent fall; differential diagnosis includes physical deconditioning in the setting of end-stage renal disease, hypothyroidism, vitamin B12 deficiency, 2. No obvious infection. s/p paracentesis with no obvious SBP. 3. ESRD on peritoneal dialysis 4. Venous stasis changes b/l lower extrmeity. Plan: Physical therapy suggested STR which he declined. Dialysis as per Nephrology. Follows [facility] as outpatient. Lasix use as per nephrology. Anticipate dc planning as per nephrology recommendations. GI/dvt prophyalxis
[2017-11-25 08:07] LABS: ABSOLUTE BASOPHIL COUNT 0 /CUMM (0.0-0.2); ABSOLUTE EOSINOPHIL COUNT 0.3 /CUMM (0.0-0.7); ABSOLUTE LYMPH COUNT 1.4 /CUMM (1.2-3.4); ABSOLUTE MONOCYTE COUNT 0.8 /CUMM (0.10-0.60); BASOPHIL % 0.4 % (0.0-2.0); EOSINOPHIL % 5.2 % (0-5); GRANULOCYTE % 61.8 % (42.2-75.2); HEMATOCRIT 35.4 % (42-52); MEAN CORPUSCULAR HGB 30.1 PG (27.0-31.0); MEAN CORPUSCULAR HGB CONC 34.2 G/DL (33.0-37.0); MEAN CORPUSCULAR VOLUME 87.9 FL (80.0-94.0); MEAN PLATELET VOLUME 8.3 FL (7.4-10.4); PLATELET COUNT 142 /CUMM (130-400); RBC DISTRIBUTION WIDTH 14.1 % (11.5-14.5); RED BLOOD CELL CT 4.03 /CUMM (4.70-6.10); WHITE BLOOD CELL COUNT 6.5 /CUMM (4.8-10.8)
--- NOTE | 2017-11-25 13:43 | PN- Nephrology ---
Assessment/Plan Nephrology Assessment: 1. ESRD secondary to diabetes mellitus and hypertension, on CAPD 2. Volume overload -improving with more aggressive ultrafiltration plus high- dose intravenous furosemide Suggestion: 1. Continue current regimen for now and reassess daily 2. Suggest Doppler ultrasound of both lower extremities 3. Mobilize Subjective Subjective: Patient feeling significantly better today. Dialysis is running well with significant negative fluid balance. Also responding to IV Lasix. Vital signs stable, afebrile, labs acceptable. PD fluid Gram stain and culture negative, cell count not done. Objective Vital Signs and I&Os Vital Signs Date Time Temp Pulse Resp B/P B/P Pulse O2 O2 Flow FiO2 Mean Ox Delivery Rate 11/25 812 97.8 65 18 130/80 11/25 0813 97.8 65 18 130/80 11/25 0712 97.8 65 18 130/80 96 11/24 2130 98.2 69 20 132/78 98 11/24 2012 98.7 63 122/72 11/24 1437 98.7 63 20 122/72 95 Room Air Intake & Output 11/25 0400 11/24 0400 11/23 0400 Intake Total 200 360 Output Total 8972 473 8094 Balance -1400 -100 -1840 Intake, Oral 200 360 Number 1 Bowel Movements Output, 600 300 Dialysate Output, Urine 800 2200 Patient 280 lb 290 lb 290 lb Weight Weight Bed scale Bed scale Bed scale Measurement Method Physical Exam: General: WD, obese white male in NAD Skin: Without rash or jaundice HEENT: Conjunctivae pink, sclerae anicteric, mucous membranes moist Neck: Without masses or thyromegaly, no supraclavicular or cervical adenopathy Chest: Clear with decreased BS at bases Heart: Regular rate and rhythm without S3 or rub Abdomen: Obese, soft and nontender without palpable masses or organomegaly; PD cath site clean and dry Extremities: 2-3+ LE edema to above the knees bilaterally Neuro: Awake and alert without focal findings; no asterixis or myoclonus Results Pertinent Lab Results: Laboratory Tests 11/25 11/24 11/23 0708 7838 2239 Chemistry Sodium (137 - 145 mmol/L) 136 L Potassium (3.5 - 5.1 mmol/L) 3.5 Chloride (98 - 107 mmol/L) 100 Carbon Dioxide (22 - 30 mmol/L) 30 Anion Gap (5 - 16) 6 BUN (9 - 20 mg/dL) 23 H Creatinine (0.7 - 1.2 mg/dL) 3.1 H Estimated GFR (>60 ml/min) 20 L BUN/Creatinine Ratio (7 - 25 %) 7.4 Coagulation PT (9.4 - 12.5 SEC) 12.9 H INR (0.90 - 1.17) 1.18 H Hematology CBC w Diff NO MAN DIFF REQ WBC (4.8 - 10.8 /CUMM) 6.5 RBC (4.70 - 6.10 /CUMM) 4.03 L Hgb (14.0 - 18.0 G/DL) 12.1 L Hct (42 - 52 %) 35.4 L MCV (80.0 - 94.0 FL) 87.9 MCH (27.0 - 31.0 PG) 30.1 MCHC (33.0 - 37.0 G/DL) 34.2 RDW (11.5 - 14.5 %) 14.1 Plt Count (130 - 400 /CUMM) 142 MPV (7.4 - 10.4 FL) 8.3 Gran % (42.2 - 75.2 %) 61.8 Lymphocytes % (20.5 - 51.1 %) 20.9 Monocytes % (1.7 - 9.3 %) 11.7 H Eosinophils % (0 - 5 %) 5.2 H Basophils % (0.0 - 2.0 %) 0.4 Absolute Granulocytes (1.4 - 6.5 /CUMM) 4.0 Absolute Lymphocytes (1.2 - 3.4 /CUMM) 1.4 Absolute Monocytes (0.10 - 0.60 /CUMM) 0.8 H Absolute Eosinophils (0.0 - 0.7 /CUMM) 0.3 Absolute Basophils (0.0 - 0.2 /CUMM) 0 Other Body Source Fluid Glucose (mg/dL) 227 Fluid LDH (U/L) 107 / 2127 Chemistry Sodium (137 - 145 mmol/L) 134 L Potassium (3.5 - 5.1 mmol/L) 3.4 L Chloride (98 - 107 mmol/L) 100 Carbon Dioxide (22 - 30 mmol/L) 24 Anion Gap (5 - 16) 10 BUN (9 - 20 mg/dL) 22 H Creatinine (0.7 - 1.2 mg/dL) 2.9 H Estimated GFR (>60 ml/min) 21 L BUN/Creatinine Ratio (7 - 25 %) 7.6 Glucose (65 - 99 mg/dL) 226 H Hemoglobin A1c (4.2 - 5.8 %) 7.1 H Calcium (8.4 - 10.2 mg/dL) 8.8 Phosphorus (2.5 - 4.5 mg/dL) 2.1 L Magnesium (1.6 - 2.3 mg/dL) 1.6 Total Bilirubin (0.2 - 1.3 mg/dL) 0.5 AST (17 - 59 U/L) 49 ALT (21 - 72 U/L) 40 Alkaline Phosphatase (< 127 U/L) 101 Creatine Kinase (55 - 170 U/L) 44 L Troponin I (<0.11 ng/ml) 0.04 [id number] Pept (<125 pg/mL) 1840 H Total Protein (6.3 - 8.2 g/dL) 5.8 L Albumin (3.5 - 5.0 g/dL) 2.8 L Globulin (1.9 - 4.2 gm/dL) 3.0 Albumin/Globulin Ratio (1.1 - 2.2 %) 0.9 L Vitamin B12 (239 - 931 pg/mL) 303 TSH (0.270 - 4.200 uIU/mL) 1.330 Hematology CBC w Diff NO MAN DIFF REQ WBC (4.8 - 10.8 /CUMM) 6.7 RBC (4.70 - 6.10 /CUMM) 3.87 L Hgb (14.0 - 18.0 G/DL) 11.4 L Hct (42 - 52 %) 33.8 L MCV (80.0 - 94.0 FL) 87.3 MCH (27.0 - 31.0 PG) 29.4 MCHC (33.0 - 37.0 G/DL) 33.7 RDW (11.5 - 14.5 %) 14.0 Plt Count (130 - 400 /CUMM) 125 L MPV (7.4 - 10.4 FL) 8.2 Gran % (42.2 - 75.2 %) 69.9 Lymphocytes % (20.5 - 51.1 %) 16.6 L Monocytes % (1.7 - 9.3 %) 9.9 H Eosinophils % (0 - 5 %) 3.3 Basophils % (0.0 - 2.0 %) 0.3 Absolute Granulocytes (1.4 - 6.5 /CUMM) 4.7 Absolute Lymphocytes (1.2 - 3.4 /CUMM) 1.1 L Absolute Monocytes (0.10 - 0.60 /CUMM) 0.7 H Absolute Eosinophils (0.0 - 0.7 /CUMM) 0.2 Absolute Basophils (0.0 - 0.2 /CUMM) 0
[2017-11-25 15:05] VITALS: BP 140/90
--- NOTE | 2017-11-25 21:47 | ULTRASOUND REPORT ---
EXAMINATION: US DUPLEX LOWER EXTREMITY VEINS, BILATERAL CLINICAL INFORMATION: Bilateral lower extremity edema. Lower extremity swelling. Lower extremity erythema COMPARISON: The report of a previous study 05/23/15 is normal TECHNIQUE: Real-time grayscale compression evaluation of the deep venous system. The compression exam is supplemented by color mapping and spectral analysis. Calf augmentation was used. Bilateral lower extremities FINDINGS: Assessment limited due to habitus and arterial calcification. The deep venous system was visualized and compressible. The Doppler exam is normal. IMPRESSION: No deep venous thrombosis demonstrated.
[2017-11-25 23:07] VITALS: BP 124/78
[2017-11-26 06:27] VITALS: BP 100/62
--- NOTE | 2017-11-26 09:21 | PN- Housestaff ---
Perez Ruiz 11/26/17 0920: Subjective Follow-up For: Fluid overload, ESRD on peritoneal dialysis Subjective: Afebrile overnight. Patient is up and sitting in his chair comfortably. Patient mentions he has been walking fine and going to the bathroom without difficulty. Patient notes he has had better sleep this morning but mentions swelling in his lower limbs. Patient denies any difficulty of breathing or shortness of breath this morning. Patient otherwise denies any weakness, chest pain, fevers, and chills. Review of Systems Constitutional: Reports: see HPI. Objective Last 24 Hrs of Vital Signs/I&O Vital Signs Date Time Temp Pulse Resp B/P B/P Pulse O2 O2 Flow FiO2 Mean Ox Delivery Rate 11/26 0802 97.3 61 20 100/62 /04 0801 97.3 61 20 100/62 /04 0627 97.3 61 20 100/62 95 Room Air / 0000 97 Room Air / 2307 98.2 66 18 124/78 97 Room Air 11/25 2205 66 124/78 /03 1600 Room Air /03 1505 97.5 76 20 140/90 97 Room Air Intake & Output / 1600 08/04 0800 08/04 0000 Intake Total 120 1600 Output Total 300 2000 Balance -180 -400 Intake, 1600 Dialysate Intake, IV 20 Intake, Oral 100 Number 0 Bowel Movements Output, 300 2000 Dialysate Patient 278 lb 277 lb Weight Weight Bed scale Measurement Method Physical Exam General Appearance: Alert, Oriented X3, Cooperative, No Acute Distress HEENT: Atraumatic Neck: Supple, No JVD Cardiovascular: Regular Rate, Normal S1, Normal S2 Lungs: Clear to Auscultation Abdomen: Soft, No Tenderness Neurological: Normal Speech Extremities: Edema b/l lower extremities extending to mid calf Assessment/Plan Assessment: 76-year-old male past medical history of hypertension, hyperlipidemia diabetes mellitus end-stage renal disease secondary to diabetes mellitus and hypertension , he is on peritoneal dialysis, hypothyroidism, COPD, HAWK, GERD, coronary artery disease, left ventricular hypertrophy ejection fraction 40-45 ,presented to emergency department with a complaint of weakness, difficulty ambulation. Problem list: Fluid overload secondary to ESRD Peritoneal dialysis Coronary artery disease ejection fraction 40-45 Bilateral lower leg weakness Difficulty ambulation phosphate level is low (2.1). -Bilaterally lower limb redness Plan: Patient is on peritoneal dialysis since two years, his last dialysis 2.5% dianeal solution since last night at 11 PM, he is doing good compared to yesterday. He is on Lasix 120 mg twice daily His edema improving compared to yesterday, ambulated well compared to yesterday. There is no sign of infection on his abdomen. -Echo is done showing ejection fraction 40-45, left ventricular hypokinesia, left ventricular concentric hypertrophy secondary due to hypertension. -His magnesium and calcium is in lower normal range -phosphate level is low. -Continue IV Lasix 120 mg BID, according to nephrology consultation; given 40 mEq K-Dur this morning 11/26 -Monitor input output -Ambulate in his comfort level -Pressure stocking -DVT prophylaxis -Dopplar USG of his lower limb to rule out DVT was negative -Avoid nephrotoxic medication -He does 10 pound weight compared to yesterday -His abdominal fluid Gram staining is negative, very rare WBC. -Follow-up under gathering machine setter; continue Peritoneal Dialysis as outpatient -Followed being bilateral lower limb redness or suspecting cellulitis, borders are marked. Reduced limb redness this morning, will keep following. -Diabetic CC2 diet. Problem List: 1. ESRD on peritoneal dialysis 2. Fluid overload Pain Ratin Pain Location: NA Pain Goal: Remain pain free Pain Plan: NA Tomorrow's Labs & Rationales: Routine labs, as indicated Tati Medina 11/26/17 1104: Attending MD Review Statement Attending Statement Attending MD Statement: examined this patient, discuss w/resident/PA/WELDING OPERATOR, agreed w/resident/PA/WELDING OPERATOR, discussed with family, reviewed EMR data (avail), discussed with nursing, discussed with case mgmt, reviewed images, amended to note Attending Assessment/Plan: Overnight no new complaints. He is on room air without use of accessory muscles. His PD site looks ok. He uses special boots for ambulation present bedside. His edema seems to be improved and he feels better. USG b/l lower extremity without DVT. vitals stable. Problem list: 1. Generalized weakness with recent fall: physical deconditioning. 2. No DVT. 3. ESRD on peritoneal dialysis. 4. Venous stasis changes b/l lower extrmeity. 5. CHF compensated ECHO EF 45% inferior akinesia Plan: Physical therapy suggested STR which he declined. Peritoneal Dialysis as per Nephrology. Follows [facility] as outpatient. Lasix use as per nephrology. Continue with iv lasix 120 mg bid for now. Anticipate dc planning as per nephrology recommendations. GI/dvt prophyalxis does peritoneal dialysis for him at home.
[2017-11-26 13:40] VITALS: BP 128/70
[2017-11-26 21:57] VITALS: BP 144/76
[2017-11-27 06:07] VITALS: BP 150/86
[2017-11-27 07:51] LABS: ABSOLUTE BASOPHIL COUNT 0 /CUMM (0.0-0.2); ABSOLUTE EOSINOPHIL COUNT 0.4 /CUMM (0.0-0.7); ABSOLUTE GRANULOCYTE CT 4.7 /CUMM (1.4-6.5); ABSOLUTE LYMPH COUNT 1.4 /CUMM (1.2-3.4); ABSOLUTE MONOCYTE COUNT 0.9 /CUMM (0.10-0.60); BASOPHIL % 0.2 % (0.0-2.0); GRANULOCYTE % 64.1 % (42.2-75.2); MEAN CORPUSCULAR HGB 29.5 PG (27.0-31.0); MEAN CORPUSCULAR HGB CONC 33.3 G/DL (33.0-37.0); MEAN CORPUSCULAR VOLUME 88.9 FL (80.0-94.0); MEAN PLATELET VOLUME 8.3 FL (7.4-10.4); PLATELET COUNT 156 /CUMM (130-400); RBC DISTRIBUTION WIDTH 14.6 % (11.5-14.5); WHITE BLOOD CELL COUNT 7.4 /CUMM (4.8-10.8)
--- NOTE | 2017-11-27 07:57 | PN- Housestaff ---
Lesa Teranar 11/27/17 0740: Subjective Follow-up For: ESRD, Fluid Overloads Complaints: Raised blood sugar Subjective: Patient is seen and examined on bed. He is doing well overnight. He ambulates well compared to yesterday.He is optimistic about his discharhge tomorrow. Feeling way better compare to yesterday. His dailysis is coninue. He he passed 600mL of urine since last night. He is concerned about his high sugar. He had bilateral leg swelling since yesterday but now its subsiding.He denies any shortness of breath, chest pain, palpitation, abdominal pain, loose motion, burning micturition, fever, chills, abdominal pain. Review of Systems Constitutional: Reports: see HPI. Objective Last 24 Hrs of Vital Signs/I&O Vital Signs Date Time Temp Pulse Resp B/P B/P Pulse O2 O2 Flow FiO2 Mean Ox Delivery Rate 11/27 606 98.5 64 16 150/86 95 11/26 2157 98.1 64 18 144/76 95 Room Air 11/26 2116 64 144/76 11/26 1340 98.2 82 20 128/70 98 Room Air 11/26 0802 97.3 61 20 100/62 11/26 0801 97.3 61 20 100/62 Intake & Output 11/27 0800 11/27 0000 11/26 1600 Intake Total 440 2460 Output Total 750 4500 Balance -310 -2040 Intake, 2200 Dialysate Intake, IV 140 Intake, Oral 300 260 Number 0 Bowel Movements Output, 750 900 Dialysate Output, 3600 Drainage Output, Urine 0 Patient 278 lb Weight Physical Exam General Appearance: Alert, Oriented X3, Cooperative Last 24 Hrs of Lab/Maikol Results Last 24 Hrs of Labs/Mics: Laboratory Tests 11/27/17 0650: Sodium Pending, Potassium Pending, Chloride Pending, Carbon Dioxide Pending, Anion Gap Pending, BUN Pending, Creatinine Pending, BUN/Creatinine Ratio Pending , CBC w Diff Pending, WBC Pending, RBC Pending, Hgb Pending, Hct Pending, MCV Pending, MCH Pending, MCHC Pending, RDW Pending, Plt Count Pending, MPV Pending Assessment/Plan Assessment: Assessment: 76-year-old male past medical history of hypertension, hyperlipidemia diabetes mellitus end-stage renal disease secondary to diabetes mellitus and hypertension , he is on peritoneal dialysis, hypothyroidism, COPD, HAWK, GERD, coronary artery disease, left ventricular hypertrophy ejection fraction 40-45 , presented to emergency department with a complaint of weakness in bilateral lower limb, difficulty ambulation. Problem list: Fluid overload secondary to ESRD Peritoneal dialysis Coronary artery disease ejection fraction 40-45 Bilateral lower leg weakness Difficulty ambulation Low phospahate level. Uncontrolled blood sugar. Plan: Patient is on peritoneal dialysis since two years, his last dialysis 2.5% dianeal solution since, last night, he is doing good compared to yesterday. His edema improving compared to yesterday, ambulated well compared to yesterday. There is no sign of infection on his abdomen. Bilateral lower limb redness, never subsided compared to yesterday. Doppler ultrasound done, DVT is ruled out. -Echo is done showing ejection fraction 40-45, left ventricular hypokinesia, left ventricular concentric hypertrophy secondary due to hypertension. -His magnesium and calcium is in lower normal range -Monitor input output -Ambulate in his comfort level -Pressure stocking -DVT prophylaxis -Avoid nephrotoxic medication -His output is 600ml last night. -His abdominal fluid Gram staining is negative, very rare WBC. -Follow-up under curber. -Followed being bilateral lower limb redness or suspecting cellulitis, borders are marked. Improved compared to yesterday. -PT advised short-term rehab but patient declined. -Anticipated discharge tomorrow as per nephrology recommendation. -Diabetic CC2 diet. Problem List: 1. Fluid overload Problem List: 1. Fluid overload 2. Renal failure Pain Ratin Pain Location: N/A Pain Goal: Remain pain free Pain Plan: N/A Tomorrow's Labs & Rationales: Tati Thomas 11/27/17 1142: Attending MD Review Statement Attending Statement Attending MD Statement: examined this patient, discuss w/resident/PA/[employer], agreed w/resident/PA/[employer], discussed with family, reviewed EMR data (avail), discussed with nursing, discussed with case mgmt, reviewed images, amended to note Attending Assessment/Plan: Patient denies any new complaints. Continue current care..
[2017-11-27 14:26] VITALS: BP 130/72
[2017-11-27 21:18] LABS: PT 13.2 SEC (9.4-12.5)
[2017-11-27 23:00] VITALS: BP 143/74
[2017-11-28 06:47] VITALS: BP 140/78
--- NOTE | 2017-11-28 07:58 | Patient Discharge Instructions ---
Discharge Instructions General Discharge Information You were seen/treated for: excess fluid in your body Special Instructions: Please follow up with your primary care within 1 week of discharge Please follow up with your pump oiler within 2-3 days after discharge Please continue your regular dialysis schedule at home Please follow up with your account advisor within 1 week Acute Coronary Syndrome Inclusion Criteria At DC or during hospital stay patient has or had the following: ACS DIAGNOSIS No Discharge Core Measures Meds if any: Prescribed or Continued at Discharge Meds if any: NOT Prescribed or Continued at Discharge Congestive Heart Failure Inclusion Criteria At DC or during hospital stay patient has or had the following: CHF DIAGNOSIS No Discharge Core Measures Meds if any: Prescribed or Continued at Discharge Meds if any: NOT Prescribed or Continued at Discharge Cerebrovascular accident Inclusion Criteria At DC or during hospital stay patient has or had the following: CVA/TIA Diagnosis No Discharge Core Measures Meds if any: Prescribed or Continued at Discharge Meds if any: NOT Prescribed or Continued at Discharge Venous thromboembolism Inclusion Criteria VTE Diagnosis No VTE Type NONE VTE Confirmed by (Test) NONE Discharge Core Measures - Per Current guidelines, there needs to be overlap - treatment for the first 5 days of Warfarin therapy. - If discharged on Warfarin prior to 5 days of - overlap therapy, the patient will need to be - assessed for post discharge needs including - *Post discharge parental anticoagulation - *Warfarin and/or parental anticoagulation education - *Follow up date to check INR post discharge At least 5 days overlap therapy as Inpatient No Meds if any: Prescribed or Continued at Discharge Note: Overlap Therapy is Warfarin and Anticoagulant Meds if any: NOT Prescribed or Continued at Discharge
[2017-11-28 08:17] VITALS: BP 140/78
[2017-11-28 08:17] LABS: PT 12.8 SEC (9.4-12.5)
--- NOTE | 2017-11-28 08:23 | PN- Housestaff ---
Jose Teran 11/28/17 0820: Subjective Follow-up For: End-stage renal disease, fluid overload Complaints: no complaints Subjective: Patient seen and examined on chair. He is in no apparent distress. He did well overnight. Yesterday he was complaining of hematuria. He was enjoying his tea. He had walk yesterday in hallways and stairs. He is optimistic to go home. He demanded to discharge him today. He denies headache, chest pain, palpitation, abdominal pain, burning micturition , fever, chills. Review of Systems Constitutional: Reports: see HPI. Objective Last 24 Hrs of Vital Signs/I&O Vital Signs Date Time Temp Pulse Resp B/P B/P Pulse O2 O2 Flow FiO2 Mean Ox Delivery Rate 11/28 816 63 140/78 11/29 0717 63 140/78 11/28 0800 Room Air 11/28 0647 97.7 63 20 140/78 97 /05 2300 97.8 72 20 143/74 98 Room Air 11/27 2127 72 142/70 Intake & Output 11/28 1600 11/28 0800 11/28 0000 Intake Total 120 2220 Output Total 300 2800 Balance -180 -580 Intake, 2100 Dialysate Intake, Oral 120 120 Output, 300 2600 Dialysate Output, Urine 200 Patient 266 lb 272 lb Weight Weight Bed scale Measurement Method Physical Exam General Appearance: Alert, Oriented X3, Cooperative Assessment/Plan Assessment: Social 77-year-old male with past medical history of ESRD on peritoneal dialysis , nephrectomy, COPD, HAWK, GERD, hyperlipidemia, chronic atrial fibrillation , insulin-dependent diabetes, hypothyroidism brought to the [facility] by ambulance with a chief complaint of bilateral leg weakness/swelling. On examination he had bilateral pedal edema which was grade 4, there was redness in bilateral lower limb as well as edema. His labs were significant for derrnage RFTs. Problems list: -Fluid overload -End-stage renal disease on peritoneal dialysis -Bilateral lower leg edema. Plan: -Patient edema subsided after starting Lasix on the recommendation of general repair mechanic\ -Dialysis was continued on 2.5% dianeal solution -His RFTs trending down. -Pressure stocking applied -Started on Coumadin in order to take precautionary measures for her atrial fibrillation. He had history of bleed due to Coumadin. Discussed with cofounder he recommended to discontinue Coumadin so discontinued. -Patient discharged to home under nursing care facility -We will continue peritoneal dialysis at home -Patient counseled regarding clean hygiene -Patient counseled regarding CC 2 diabetic diet -Patient is anticipated discharge today. Problem List: 1. Fluid overload 2. ESRD on peritoneal dialysis Pain Ratin Pain Location: N/A Pain Goal: Remain pain free Pain Plan: n/a Tomorrow's Labs & Rationales: N/A CarolTati 11/28/17 1037: Attending MD Review Statement Attending Statement Attending MD Statement: examined this patient, discuss w/resident/PA/PAYROLL ASSOCIATE, agreed w/resident/PA/PA[employer] ASSOCIATE, discussed with family, reviewed EMR data (avail), discussed with nursing, discussed with case mgmt, reviewed images, amended to note Attending Assessment/Plan: Patient with considerable improvement in his generalised swelling and anasarca. Nephrology consulted and recommend to change iv lasix to PO lasix at discharge. He was on coumadin at home for paroxysmal afib and was not taking for long time. Patient advised risks/benefits of anticoagualiton therapy. He said he will discuss with his cofounder Dr Masters. Follow up outpatient with PCP and cardiology and re consider a/c therapy. Arrange for HHS and can monitor INR at home. He is medically stable for discharge to home with services.
[2017-11-28 08:25] LABS: ABSOLUTE BASOPHIL COUNT 0 /CUMM (0.0-0.2); ABSOLUTE EOSINOPHIL COUNT 0.4 /CUMM (0.0-0.7); ABSOLUTE LYMPH COUNT 1.2 /CUMM (1.2-3.4); ABSOLUTE MONOCYTE COUNT 0.6 /CUMM (0.10-0.60); BASOPHIL % 0.3 % (0.0-2.0); EOSINOPHIL % 5.7 % (0-5); GRANULOCYTE % 64.3 % (42.2-75.2); HEMATOCRIT 38.3 % (42-52); MEAN CORPUSCULAR HGB 29.3 PG (27.0-31.0); MEAN CORPUSCULAR HGB CONC 33.3 G/DL (33.0-37.0); MEAN PLATELET VOLUME 8.3 FL (7.4-10.4); PLATELET COUNT 154 /CUMM (130-400); RBC DISTRIBUTION WIDTH 14.3 % (11.5-14.5); RED BLOOD CELL CT 4.36 /CUMM (4.70-6.10); WHITE BLOOD CELL COUNT 6.3 /CUMM (4.8-10.8)
--- NOTE | 2017-11-28 10:13 | Event Note ---
Event Note Event Note: Pt stated to the medical team that he no longer takes warfarin due to previous hx of bleeding (he was not able to elaborate more, but he reports he was once hospitalized due to xarelto). Discussed with patients line fixer, Dr Masters regarding risk benefit assesment of anticoagulation. Per cardiology, Patient can be watched off anticoagulation given his hx of bleeding and the fact that he has been in sinus rythm for awhile.
--- NOTE | 2017-11-29 14:49 | Discharge Summary ---
Visit Information Visit Dates Admission Date: 11/23/17. Discharge Date: 11/28/17 Hospital Course Course Attending Physician: Tati Medina MD Primary Care Physician: Gary Yates MD Other Care Providers: Groundman/Lineman, pediatric care coordinator Consulting Request: Consulting Specialty: Cardiology Consulting Physician: Dr. Masters Reason for Consult: Regarding blood thinner as he had AFIB Hospital Course: 77-year-old male with past medical history of ESRD on peritoneal dialysis, nephrectomy, COPD, HAWK, GERD, hyperlipidemia, chronic atrial fibrillation , insulin-dependent diabetes, hypothyroidism. He presented to emergency department with the following complaints Fluid overload, aggravated pedal edema due to ESRD and derange RFTs. His vitals at presentation to emergency department BP#111/56, RR#70, RR#18 . His lab was significant for derange RFTs BUN:Cr#7.6 Cr#2.9 GFR#20 , BMP, Na#134, K# 3.4, Cl# 100 At emergency patient started on Lasix and shifted to general medical floor, patient edema subsided after starting Lasix and increase peritoneal dialysis frequency on the recommendation of property utilization manager. Dialysis was continued on 2.5% dianeal solution. His RFTs trended down. Pressure stocking applied to subside pedal edema and to avoid DVT. Started on Coumadin in order to take precautionary measures for her atrial fibrillation. He had history of bleed due to Coumadin, Discussed with pediatric care coordinator he recommended to discontinue Coumadin so discontinued because he was concerned about recurrent bleeding due to blood thinner Coumadin. Because he had the same history before bleeding due to Coumadin. He also developed some redness on bilateral lower limb, tenderness in left calf muscles we did Doppler ultrasound to rule out DVT. The redness subsided by itself patient improved a lot on day 3 he ambulate in hallways and also he went up and down stairs. He was ready to go home. -Patient discharged to home under nursing care facility -will continue peritoneal dialysis at home -Patient counseled regarding clean hygiene -Patient counseled regarding CC 2 diabetic diet -Patient is anticipated discharge today. Complications: n/a Allergies: Coded Allergies: NO KNOWN ALLERGIES (11/27/14) Disposition Summary Disposition Principal Diagnosis: End-stage renal disease, fluid overload Additional Diagnosis: Nephrectomy, COPD, HAWK, history of myocardial infarction status post PCI and 2 stent, atrial fibrillation, hypertension, hyperlipidemia, GERD, IDDM, hypothyroidism. Discharge Disposition: home health services Discharge Instructions General Discharge Information Code Status: Do Not Resucitate/Intubat Patient's Diet: Diabetic CC2. Patient's Activity: Can ambulate up to his comfort level. Follow-Up Instructions/Appts: Continue peritoneal dialysis Follow up with primary care physician, follow-up with pediatric care coordinator, follow-up with the property utilization manager. In case of any medical attention contact your primary care physician. Medications at Discharge Discharge Medications: Stop taking the following medications: Warfarin Sodium (Warfarin Sodium) 5 MG TABLET ORAL EVERY TUESDAY Qty = 90 Warfarin Sodium (Coumadin) 2.5 MG TABLET ORAL As Directed Continue taking these medications: Tamsulosin HCl (Flomax) 0.4 MG CAP.ER.24H 1 Capsule ORAL DAILY Comments: Last Taken: 11/28/17 Time: 8 AM Levothyroxine Sodium (Levothyroxine Sodium) 150 MCG TABLET 1 Tablet ORAL DAILY BEFORE BREAKFAST Comments: Last Taken: 11/28/17 Time: 7 AM Insulin NPL/Insulin Lispro (Humalog Mix 75-25 Kwikpen) 100 UNIT/ML (75-25) INSULN.PEN Units SC 3 TIMES DAILY BEFORE MEALS Qty = 30 Comments: [facility] Simvastatin (Simvastatin*) 80 MG TABLET 1 Tablet ORAL DAILY Qty = 90 Comments: NOT GIVEN IN HOSPITAL - ATORVASTATIN GIVEN IN SUBSTITUTION Last Taken: 11/27/17 Time: 5 PM Furosemide (Furosemide) 80 MG TABLET 2 Tablet ORAL TWICE DAILY Qty = 30 Comments: GIVEN IV ON 11/27/17 @ 5 PM Cholecalciferol (Vitamin D3) (Vitamin D3) 2,000 UNIT TABLET 1 Tablet ORAL DAILY Comments: Last Taken: 11/28/17 Time: 8 AM Insulin Glargine,Hum.rec.anlog (Basaglar Kwikpen U-100) 100 UNIT/ML (3 ML) INSULN.PEN 55 Units SC Every night Comments: NOT GIVEN IN [facility] Cranberry Extract (Cranberry) 500 MG TABLET 1 Tablet ORAL DAILY Comments: NOT GIVEN IN HOSPITAL Docusate Sodium (Colace) 100 MG CAPSULE 1 Capsule ORAL DAILY Comments: Last Taken: 11/28/17 Time: 8 AM Valentine-3/Dha/Epa/Fish Oil (Fish Oil EC 1,000 MG Softgel) (Unknown Strength) BRIAN. Unknown Dose ORAL DAILY Comments: NOT GIVEN IN HOSPITAL Folic Acid (Folic Acid) 0.4 MG TABLET 1 Tablet ORAL DAILY Comments: Last Taken: 11/28/17 Time: 8 AM Metoprolol Tartrate (Metoprolol Tartrate) 25 MG TABLET 0.5 Tablet ORAL TWICE DAILY Comments: Last Taken: 11/28/17 Time: 8 AM Copies To: [place] LIN,Gary Perez
== END 2017-11-28 10:45 | disposition home health service (06) | DRG 640 ==
LOC: ERH 21:03 → 2NA 22:24 → ERHI 22:24 → ENRESERV 23:26 → 2NA 23:58 → ENPENDDIS 11-28 10:29 → 2NA 11-28 10:45 → ENTRNSPT 11-28 11:00 → EDTRNSPT 11-28 11:04 → EDTRNSPTSTS 11-28 11:04 → CMPTRNSPT 11-28 11:14
PROVIDERS: Emergency Medicine; Physical Medicine & Rehabilitation; Student in an Organized Health Care Education/Training Program
PROC: 3E1M39Z Irrigation of Peritoneal Cavity using Dialysate, Percutaneous Approach (ICD-10-PCS; principal; 2017-11-24)
DX: E87.79 Other fluid overload (principal); N18.6 End stage renal disease; I13.2 Hypertensive heart and chronic kidney disease with heart failure and with stage 5 chronic kidney disease, or end stage renal disease; I50.22 Chronic systolic (congestive) heart failure; I48.2 Chronic atrial fibrillation; J44.9 Chronic obstructive pulmonary disease, unspecified; I48.0 Paroxysmal atrial fibrillation; E83.39 Other disorders of phosphorus metabolism; E11.22 Type 2 diabetes mellitus with diabetic chronic kidney disease; I25.10 Atherosclerotic heart disease of native coronary artery without angina pectoris; G47.33 Obstructive sleep apnea (adult) (pediatric); Z99.2 Dependence on renal dialysis; I25.2 Old myocardial infarction; Z87.891 Personal history of nicotine dependence; E78.5 Hyperlipidemia, unspecified; K21.9 Gastro-esophageal reflux disease without esophagitis; E03.9 Hypothyroidism, unspecified; Z95.5 Presence of coronary angioplasty implant and graft; R26.89 Other abnormalities of gait and mobility; E87.1 Hypo-osmolality and hyponatremia; E87.6 Hypokalemia; Z66 Do not resuscitate; E53.8 Deficiency of other specified B group vitamins; I87.2 Venous insufficiency (chronic) (peripheral); Z85.528 Personal history of other malignant neoplasm of kidney; Z90.5 Acquired absence of kidney; Z79.4 Long term (current) use of insulin
CPT/HCPCS: 2NAP; 87075; 36415; 36592; 71045; 73502-LT; 73552; 81001; 82436; 93005; 93010; 93306; 93970; 97116-GO; 97530-GO; J1644; J1940; J3490